=== PATIENT | male | born 1965 | race Caucasian/White ===

== ENCOUNTER → 2016-09-23 | Outpatient (CLI) | payer OTHER ==
[2016-09-23 07:47] LABS: CH 31.4; CHCM 35.5; HCT 46.2 % (39.0-53.0); HDW 2.77; HGB 16.7 gm/dL (13.0-17.5); MCH 32.1 pg (25.0-35.0); MCHC 36.1 g/dL (31.0-37.0); MCV 88.8 fL (80.0-100.0); Mean Platelet Volume 6.6; RDW 12.2 % (11.5-15.5); WBC 4.3 k/uL (3.8-10.6)
[2016-09-23 08:39] LABS: Hemoglobin A1C 5.2 % (4.2-6.1)
[2016-09-23 10:25] LABS: ALT 88 U/L (21-72); AST 34 U/L (17-59); Alkaline Phosphatase 55 U/L (38-126); Anion Gap 12 mmol/L; Blood Urea Nitrogen 16 mg/dL (9-20); Calcium 9.6 mg/dL (8.4-10.2); Carbon Dioxide 26 mmol/L (22-30); Chloride 107 mmol/L (98-107); Cholesterol 188 mg/dL (<200); Glucose 117 mg/dL (74-99); HDL Cholesterol 46 mg/dL (40-60); Non-African American GFR(MDRD) >60 (>60 ml/min/1.73 sqM); Potassium 4.3 mmol/L (3.5-5.1); Sodium 145 mmol/L (137-145); Total Bilirubin 0.8 mg/dL (0.2-1.3); Triglycerides 98 mg/dL (<150)
== END | disposition home or self-care (01) ==
LOC: LABWHC1 06:58
PROVIDERS: ATTEND Internal Medicine
DX: E78.5 Hyperlipidemia, unspecified (principal); R73.9 Hyperglycemia, unspecified; Z12.5 Encounter for screening for malignant neoplasm of prostate
CPT/HCPCS: 80061; 80053; 83036; 84443; 85027; 36415; G0103

== ENCOUNTER → 2016-11-05 | Outpatient (CLI) | payer OTHER ==
[2016-11-05 21:52] LABS: ANA w/Reflex to Titer NEGATIVE (NEGATIVE)
== END | disposition home or self-care (01) ==
LOC: LABWHC1 12:58
PROVIDERS: ATTEND Otolaryngology
DX: M54.2 Cervicalgia (principal); R07.0 Pain in throat; R53.83 Other fatigue; R68.2 Dry mouth, unspecified
CPT/HCPCS: 36415; 86038; 86235; 86376; 86431

== ENCOUNTER → 2016-12-13 | Outpatient (CLI) | payer OTHER ==
--- NOTE | 2016-12-13 09:11 | CT ---
EXAMINATION TYPE: CT soft tissue neck w con DATE OF EXAM: 12/13/2016 HISTORY: lt side of neck lump x 6 months COMPARISON: CT neck September 19, 2014 CT DLP: 330.0 mGycm. Automated Exposure Control for Dose Reduction was Utilized. TECHNIQUE: CT scan of the neck is performed with IV Contrast, patient injected with 100 mL of Omnipa que 300, axial images are obtained, coronal and sagittal reformatted images are reviewed. FINDINGS: A metallic BB is placed at level of palpable abnormality left neck just below level of true vocal cor ds at superior aspect of thyroid gland on axial image 34. At this level strap muscles and SCM are sym metric and felt within normal limits. Vascular structures are unremarkable. Tiny lymph nodes are pres ent bilaterally. There is no suspicious solid or cystic mass or fluid collection identified. Airway remains patent. Thyroid is felt within normal limits. Lung apices are clear. There is no significant plaque or stenosis in carotid bulbs bilaterally. Parotid and submandibular gl ands are symmetric and unremarkable. Visualized paranasal sinuses are clear. Visualized portion of br ain is unremarkable. Visualized osseous structures are intact. No greater than 1 cm suspicious neck a denopathy is seen. Poorly pneumatized mastoid air cells are redemonstrated bilaterally. IMPRESSION: No worrisome mass or adenopathy is seen. No significant change from prior study noted.
== END | disposition home or self-care (01) ==
LOC: RADCTMAIN 07:04
PROVIDERS: ATTEND Otolaryngology
DX: R22.1 Localized swelling, mass and lump, neck (principal)
CPT/HCPCS: 70491; Q9967

== ENCOUNTER → 2017-02-04 | Outpatient (CLI) | payer OTHER ==
[2017-02-04 07:23] LABS: Basophils % (A) 0 %; CH 32.4; CHCM 34.7; Eosinophils # (A) 0.1 k/uL (0-0.7); Eosinophils % (A) 2 %; HCT 47.4 % (39.0-53.0); HDW 2.75; Luc % (Auto) 3; Lymphocytes # (A) 1.4 k/uL (1.0-4.8); Lymphocytes % (A) 34 %; MCH 31.5 pg (25.0-35.0); MCHC 33.7 g/dL (31.0-37.0); MCV 93.7 fL (80.0-100.0); Monocytes # (A) 0.2 k/uL (0-1.0); Monocytes % (A) 6 %; Neutrophils # (A) 2.1 k/uL (1.3-7.7); Neutrophils % (A) 54 %; RBC 5.06 m/uL (4.30-5.90); RDW 12.2 % (11.5-15.5); WBC 3.9 k/uL (3.8-10.6); WBC (Perox) 4.09
[2017-02-04 07:32] LABS: ALT 64 U/L (21-72); AST 22 U/L (17-59); Alkaline Phosphatase 44 U/L (38-126); Anion Gap 6 mmol/L; Blood Urea Nitrogen 15 mg/dL (9-20); Calcium 9.7 mg/dL (8.4-10.2); Carbon Dioxide 29 mmol/L (22-30); Chloride 108 mmol/L (98-107); Cholesterol 195 mg/dL (<200); Glucose 115 mg/dL (74-99); HDL Cholesterol 49 mg/dL (40-60); Non-African American GFR(MDRD) >60 (>60 ml/min/1.73 sqM); Potassium 4.4 mmol/L (3.5-5.1); Sodium 143 mmol/L (137-145); Total Bilirubin 0.7 mg/dL (0.2-1.3)
== END | disposition home or self-care (01) ==
LOC: LABWHC1 06:44
PROVIDERS: ATTEND Internal Medicine
DX: Z13.6 Encounter for screening for cardiovascular disorders (principal); K21.9 Gastro-esophageal reflux disease without esophagitis; R53.83 Other fatigue
CPT/HCPCS: 36415; 80053; 80061; 84443; 85025

== ENCOUNTER → 2017-06-11 | Outpatient (CLI) | payer OTHER ==
[2017-06-11 08:46] LABS: Basophils % (A) 1 %; Eosinophils # (A) 0.1 k/uL (0-0.7); Eosinophils % (A) 1 %; HCT 47.6 % (39.0-53.0); Lymphocytes # (A) 1.8 k/uL (1.0-4.8); Lymphocytes % (A) 37 %; MCH 30.1 pg (25.0-35.0); MCHC 33.7 g/dL (31.0-37.0); MCV 89.1 fL (80.0-100.0); Mean Platelet Volume 7.1; Monocytes # (A) 0.4 k/uL (0-1.0); Monocytes % (A) 7 %; Neutrophils # (A) 2.6 k/uL (1.3-7.7); Neutrophils % (A) 51 %; Platelet Count 203 k/uL (150-450); RBC 5.34 m/uL (4.30-5.90); RDW 12.2 % (11.5-15.5)
[2017-06-11 09:03] LABS: ALT 74 U/L (21-72); AST 27 U/L (17-59); Albumin 4.5 g/dL (3.5-5.0); Alkaline Phosphatase 50 U/L (38-126); Anion Gap 10 mmol/L; Blood Urea Nitrogen 21 mg/dL (9-20); Calcium 9.8 mg/dL (8.4-10.2); Carbon Dioxide 28 mmol/L (22-30); Chloride 106 mmol/L (98-107); Cholesterol 221 mg/dL (<200); Glucose 112 mg/dL (74-99); HDL Cholesterol 48 mg/dL (40-60); LDL Cholesterol,Calculated 154 mg/dL (0-99); Potassium 4.7 mmol/L (3.5-5.1); Sodium 144 mmol/L (137-145); Total Protein 7.1 g/dL (6.3-8.2); Triglycerides 95 mg/dL (<150)
== END | disposition home or self-care (01) ==
LOC: LABWHC1 08:15
PROVIDERS: ATTEND Internal Medicine
DX: K21.9 Gastro-esophageal reflux disease without esophagitis (principal); R53.83 Other fatigue; Z13.6 Encounter for screening for cardiovascular disorders
CPT/HCPCS: 36415; 80053; 80061; 84443; 85025

== ENCOUNTER → 2017-08-23 | Outpatient (CLI) | payer OTHER ==
--- NOTE | 2017-08-24 08:46 | CT ---
EXAMINATION TYPE: CT abdomen pelvis wo con DATE OF EXAM: 08/23/2017 COMPARISON: 07/25/2015 HISTORY: Right side flank pain. CT DLP: 426.9 mGycm Examination of the solid and hollow viscera is limited given the lack of contrast. FINDINGS: LUNG BASES: No evidence for nodule. No evidence for infiltrate. LIVER/GB: The gallbladder is unremarkable. Simple cyst dome of the liver measuring 9 mm. No solid hep atic lesions identified. PANCREAS: No pancreatic mass identified. No inflammatory process seen. SPLEEN: No evidence for splenomegaly. No intrasplenic lesions seen. ADRENALS: No adrenal nodules identified. No evidence for thickening. KIDNEYS: No evidence for renal mass. No nephrolithiasis. No hydronephrosis. BOWEL: Appendix has a normal appearance. No evidence of bowel obstruction. No inflammatory process. Lymph nodes: No evidence for adenopathy greater than 1 cm. Abdominal aorta: Atheromatous changes seen. No evidence for aneurysm. Genital organs: No significant abnormality. Other: No significant abnormality. IMPRESSION: NO DISTINCT ABNORMALITY APPRECIATED.
== END | disposition home or self-care (01) ==
LOC: RADCTMAIN 18:06
PROVIDERS: ATTEND Family Medicine
DX: R10.9 Unspecified abdominal pain (principal); Z91.048 Other nonmedicinal substance allergy status
CPT/HCPCS: 74176

== ENCOUNTER 2017-09-01 12:33 | Day surgery (SDC) | payer OTHER ==
[2017-08-30 10:45] VITALS: BMI 25.0
[~2017-09-01 12:33] MED LIST: LACTATED RINGERS 1,000 ML IV SCH; LIDOCAINE 1% 20 ML VIAL (10MG/ML) FOR IV START INTRADERMA PRN; MIDAZOLAM 2 MG/2 ML VIAL IV PRN
[2017-09-01 13:00] VITALS: TEMP 97
[2017-09-01] MEDS ORDERED: PROPOFOL 10 MG/ML 20 ML VIAL IV ONE (14:14)
[2017-09-01] MEDS ORDERED: LIDOCAINE 1% INJ 10MG/ML (20 ML MDV) ONE (14:14)
--- NOTE | 2017-09-01 14:39 | P.PCN ---
Date of Procedure: 09/01/17 Procedure(s) Performed: Procedure: Total colonoscopy. Preoperative diagnosis: Screening for history of polyps. Postoperative diagnosis: Sigmoid diverticulosis with no evidence of acute diverticulitis, strictures, polyps or cancer. Preparation: HalfLytely prep. Sedation: Was provided by anesthesia. Brief clinical history: The patient is 52-year-old male who is scheduled for this evaluation for screening for neoplasia because of history of polyps. His last exam was 5 or 6 years ago. At this time, he has no abdominal complaints, bleeding or anemia. Procedure: With the patient on his left lateral decubitus position and after informed consent and adequate sedation, the perianal area was inspected and it did not show any fissures or fistulas. There were no masses felt on digital rectal examination. The Olympus CFQ 160L video colonoscope was then inserted in the rectum in the usual fashion and advanced to the cecum. There were several diverticular orifices seen scattered in the distal sigmoid with no evidence of acute diverticulitis or strictures. The mucosa appeared healthy. No polyps or tumors were seen. I retroflexed the endoscope in the rectum before the endoscope was withdrawn. The patient tolerated the procedure well. Plan: The patient was reassured. Discussed dietary measures. With his history , I recommended repeat exam in 5 years. He will follow up with you as planned.
[2017-09-01 15:01] VITALS: BP 109/72; PULSE 68; RESP 16
== END 2017-09-01 15:09 | disposition home or self-care (01) ==
LOC: ORWHC2ENDO 12:33
DX: Z12.11 Encounter for screening for malignant neoplasm of colon (principal); K57.30 Diverticulosis of large intestine without perforation or abscess without bleeding; Z86.010 Personal history of colon polyps; K21.9 Gastro-esophageal reflux disease without esophagitis; Z85.828 Personal history of other malignant neoplasm of skin; Z87.891 Personal history of nicotine dependence; Z91.041 Radiographic dye allergy status; Z91.048 Other nonmedicinal substance allergy status
CPT/HCPCS: J2001; J2704; G0105

== ENCOUNTER → 2017-09-03 | Outpatient (CLI) | payer OTHER ==
[2017-09-03 08:56] LABS: Basophils % (A) 1 %; Eosinophils # (A) 0.1 k/uL (0-0.7); Eosinophils % (A) 2 %; HCT 45.1 % (39.0-53.0); HGB 15.9 gm/dL (13.0-17.5); Lymphocytes # (A) 1.6 k/uL (1.0-4.8); Lymphocytes % (A) 42 %; MCH 31.7 pg (25.0-35.0); MCHC 35.3 g/dL (31.0-37.0); MCV 89.8 fL (80.0-100.0); Mean Platelet Volume 6.8; Monocytes # (A) 0.3 k/uL (0-1.0); Monocytes % (A) 7 %; Neutrophils # (A) 1.7 k/uL (1.3-7.7); Neutrophils % (A) 45 %; Platelet Count 168 k/uL (150-450); RBC 5.02 m/uL (4.30-5.90); RDW 12.6 % (11.5-15.5); WBC 3.8 k/uL (3.8-10.6)
[2017-09-03 11:21] LABS: ALT 55 U/L (21-72); AST 26 U/L (17-59); Albumin 4.4 g/dL (3.5-5.0); Alkaline Phosphatase 44 U/L (38-126); Anion Gap 13 mmol/L; Blood Urea Nitrogen 18 mg/dL (9-20); Calcium 9.7 mg/dL (8.4-10.2); Carbon Dioxide 24 mmol/L (22-30); Chloride 110 mmol/L (98-107); Glucose 115 mg/dL (74-99); Potassium 4.2 mmol/L (3.5-5.1); Sodium 147 mmol/L (137-145); Total Bilirubin 0.4 mg/dL (0.2-1.3); Total Protein 6.7 g/dL (6.3-8.2)
[2017-09-03 11:54] LABS: Prostate Specific Antigen 0.39 ng/mL (0.00-4.00)
== END | disposition home or self-care (01) ==
LOC: LABWHC1 08:14
PROVIDERS: ATTEND Family Medicine
DX: Z00.00 Encounter for general adult medical examination without abnormal findings (principal); M54.5 Low back pain
CPT/HCPCS: 36415; 80053; 84153; 84443; 85025

== ENCOUNTER → 2020-01-28 | Outpatient (CLI) | payer OTHER ==
--- NOTE | 2020-01-28 20:43 | US ---
EXAMINATION TYPE: US axilla LT DATE OF EXAM: 01/28/2020 COMPARISON: NONE CLINICAL HISTORY: 55-year-old male R59.0 Localized enlarged lymph nodes. Lump within the left axilla that changes in size. TECHNIQUE: Targeted ultrasound examination at the palpable site within the left axilla. Images of the contralateral side were taken for comparison purposes. FINDINGS: Rotary Kiln Operator notes: Normal appearing lymph nodes noted bilateral axilla = 1.8 x 1.6 x 0.8 cm on the le ft and 1.4 x 1.2 x 1.0 cm on the right IMPRESSION: Prominent lymph nodes are noted in the bilateral axilla, mildly enlarged on the left measuring up to 1.6 cm short axis and upper limits of normal in size measuring up to 1.2 cm short axis on the right.
== END | disposition home or self-care (01) ==
LOC: RADUSWWP 16:12
PROVIDERS: ATTEND Family Medicine
DX: R59.0 Localized enlarged lymph nodes (principal); Z91.048 Other nonmedicinal substance allergy status

== ENCOUNTER → 2020-07-04 | Outpatient (CLI) | payer OTHER ==
[2020-07-04 08:20] LABS: Basophils % (A) 1 %; Eosinophils % (A) 1 %; HCT 40.1 % (39.0-53.0); HGB 14.6 gm/dL (13.0-17.5); Lymphocytes # (A) 1.1 k/uL (1.0-4.8); Lymphocytes % (A) 26 %; MCHC 36.3 g/dL (31.0-37.0); MCV 88.1 fL (80.0-100.0); Monocytes # (A) 0.3 k/uL (0-1.0); Monocytes % (A) 7 %; Neutrophils # (A) 2.5 k/uL (1.3-7.7); Neutrophils % (A) 63 %; Platelet Count 211 k/uL (150-450); RBC 4.55 m/uL (4.30-5.90); RDW 11.7 % (11.5-15.5)
[2020-07-04 08:37] LABS: ALT 54 U/L (4-49); AST 30 U/L (17-59); African American GFR (CKD) >90 (>60 ml/min/1.73 sqM); Alkaline Phosphatase 64 U/L (38-126); Anion Gap 9 mmol/L; Blood Urea Nitrogen 17 mg/dL (9-20); Calcium 9.4 mg/dL (8.4-10.2); Carbon Dioxide 25 mmol/L (22-30); Chloride 108 mmol/L (98-107); Glucose 123 mg/dL (74-99); Non-African American GFR(CKD) >90 (>60 ml/min/1.73 sqM); Potassium 4.1 mmol/L (3.5-5.1); Sodium 142 mmol/L (137-145); Total Bilirubin 0.7 mg/dL (0.2-1.3); Total Protein 6.6 g/dL (6.3-8.2)
[2020-07-04 09:08] LABS: Cholesterol 185 mg/dL (<200); HDL Cholesterol 36 mg/dL (40-60); LDL Cholesterol,Calculated 131 mg/dL (0-99); Triglycerides 91 mg/dL (<150)
[2020-07-04 10:07] LABS: Erythrocyte Sedimentation Rate 20 mm/hr (0-15)
[2020-07-04 14:38] LABS: HIV 2 AB Non-Reactive (Non-Reactive); HIV AB P24 Non-Reactive (Non-Reactive); HIV P24 AG Non-Reactive (Non-Reactive)
[2020-07-04 16:52] LABS: Protein, Total 6.2 g/dL (6.2-8.2)
[2020-07-04 17:37] LABS: Hepatitis A Antibody IgM Non-Reactive (Non-Reactive); Hepatitis B Core IgM Non-Reactive (Non-Reactive); Hepatitis B Surface Antigen Non-Reactive (Non-Reactive); Hepatitis C IgG Antibody Non-Reactive (Non-Reactive)
[2020-07-04 19:24] LABS: Hemoglobin A1C 5.6 % (4.0-6.0)
[2020-07-05 01:30] LABS: PSA Annual Screen 0.4 ng/mL (0.0-4.0)
[2020-07-09 11:27] LABS: Albumin 3.66 g/dL (3.80-4.90); Gamma Globulin 0.78 g/dL (0.70-1.50)
== END | disposition home or self-care (01) ==
LOC: LABWHC1 07:20
PROVIDERS: ATTEND Internal Medicine
DX: Z00.00 Encounter for general adult medical examination without abnormal findings (principal); K21.9 Gastro-esophageal reflux disease without esophagitis; R73.9 Hyperglycemia, unspecified; R59.0 Localized enlarged lymph nodes
CPT/HCPCS: 86665; 80061; 80053; 80074; 85652; 84443; 85025; 84165; 86645; 87390; 83036; 36415; G0103

== ENCOUNTER → 2021-03-12 | Outpatient (CLI) | payer OTHER ==
--- NOTE | 2021-03-13 07:34 | CTL ---
EXAMINATION TYPE: CT Low Dose Lung DATE OF EXAM ORDERED: 03/12/2021 HISTORY: Long-term tobacco use. Lung cancer screening CT DLP: 95.[address] CTDI: 2.5 mGy Automated exposure control for dose reduction was used. SCREENING VISIT: Baseline COMPARISON: None TECHNIQUE: Low dose computed tomography scan was performed through the chest at 1 mm thick sections a nd reconstructed images in multiple planes at 1 mm and [address] DIAGNOSTIC QUALITY: Satisfactory FINDINGS: LUNG NODULES: None. LUNGS: COPD: Severity: Mild Fibrosis: Severity: None Lymph nodes: No greater than 1 cm Other findings: None RIGHT PLEURAL SPACE: Effusion: None Calcification: None Thickening: None Pneumothorax: None LEFT PLEURAL SPACE: Effusion: None Calcification: None Thickening: None Pneumothorax: None HEART: Heart Size: Normal Coronary Calcification: None Pericardial Effusion: Normal OTHER FINDINGS: Upper abdomen: None Bony thorax: None Supraclavicular region: None Other: None IMPRESSION: No suspicious nodules. CT LUNG RAD AND CT CHEST RECOMMENDATION: Lung-Rad 1 Negative: Continue annual screening with LDCT in 12 months. S Modifier (other clinically significant findings): None
== END | disposition home or self-care (01) ==
LOC: RADCTMAIN 17:26
PROVIDERS: ATTEND Internal Medicine
DX: Z12.2 Encounter for screening for malignant neoplasm of respiratory organs (principal); Z72.0 Tobacco use
CPT/HCPCS: 71271

== ENCOUNTER → 2022-02-23 | Outpatient (CLI) | payer OTHER ==
--- NOTE | 2022-02-23 15:30 | CT ---
EXAMINATION TYPE: CT abdomen pelvis w con DATE OF EXAM: 02/23/2022 COMPARISON: CT abdomen and pelvis 2018 HISTORY: Lower abdominal pain CT DLP: 1229 mGycm, Automated Exposure Control for Dose Reduction was Utilized. CONTRAST: CT scan of the abdomen and pelvis is performed with oral and with IV Contrast, patient injected with 100cc mL of Isovue 300. FINDINGS: LUNG BASES: No significant abnormality is appreciated. LIVER/GB: No significant abnormality is appreciated. PANCREAS: No significant abnormality is seen. SPLEEN: No significant abnormality is seen. ADRENALS: No significant abnormality is seen. KIDNEYS: Symmetric corticomedullary injury uptake and excretion without hydronephrosis seen bilateral ly. Simple appearing central parapelvic cysts in both kidneys. BOWEL: Oral contrast reaches the splenic flexure. No suspicious small or large bowel dilatation. Sigm oid colonic diverticula are present. No CT evidence for acute diverticulitis. PROSTATE/SEMINAL VESICLES: No gross abnormality seen. LYMPH NODES: No greater than 1cm abdominal or pelvic lymph nodes are appreciated. OSSEOUS STRUCTURES: No significant abnormality is seen. OTHER: Small fat-containing left inguinal hernia. IMPRESSION: No bowel obstruction. No significant acute finding is seen to account for patient's clin ical symptoms of lower abdominal pain not further specified. No significant change from prior CT.
== END | disposition home or self-care (01) ==
LOC: RADCTMAIN 14:19
PROVIDERS: ATTEND Internal Medicine
DX: R10.32 Left lower quadrant pain (principal)
CPT/HCPCS: 74177; 36415; Q9967

== ENCOUNTER → 2022-04-15 | Outpatient (CLI) | payer BC ==
--- NOTE | 2022-04-16 07:30 | CTL ---
EXAMINATION TYPE: CT Low Dose Lung DATE OF EXAM: 04/15/2022 5:16 PM CLINICAL INDICATION:Male, 57 years old with history of Z87.891; personal hx tobacco use , history of tobacco use. COMPARISON: None. TECHNIQUE: Multiple axial non-contrast scans were obtained from approximately the lung apices through the upper abdomen. Coronal and sagittal reformatted images were obtained. Low dose technique was uti lized. CT DLP: 84.2 mGycm, Automated exposure control for dose reduction was used. CT Contrast: Contrast used: None Oral contrast used: None FINDINGS: ======== Lack of intravenous contrast and low dose technique limits the evaluation of the vascular and soft ti ssue structures. LUNGS: Mild centrilobular emphysema changes are seen throughout the lungs. No evidence of focal conso lidation, pneumothorax or pleural effusion. Nodules: RUL: None. RML: None. RLL: None. [place]: None. LLL: None. AIRWAY: Patent and unremarkable. HEART: Size within normal limits. MEDIASTINUM: No gross evidence of adenopathy. VASCULATURE: No aortic aneurysm. MUSCULOSKELETAL: No acute osseous abnormalities, mild multilevel disc degeneration changes throughout the spine. SOFT TISSUES/LYMPH NODES: Unremarkable. LOWER NECK: No significant findings. UPPER ABDOMEN: No significant findings. IMPRESSION: 1. No clinically significant pulmonary nodules. 2. Mild emphysema. CT LUNG RAD AND CT CHEST RECOMMENDATION: Lung-Rad 1 Negative: Continue annual screening with LDCT in 12 months. S Modifier (other clinically significant findings): None Recommend smoking cessation (if current smoker), or continuation of smoking cessation (if prior smoke r). Annual screening for lung cancer with low-dose computed tomography is recommended in adults ages 55 to 77 years who have a 30 pack-year smoking history and currently smoke or have quit within the pa st 15 years. Screening should be discontinued once a person has not smoked for 15 years or develops a health problem that substantially limits life expectancy or the ability or willingness to have curat josh lung surgery. Lung rads 2021 [email or web address]
== END | disposition home or self-care (01) ==
LOC: RADCTMAIN 16:47
PROVIDERS: ATTEND Internal Medicine
DX: Z12.2 Encounter for screening for malignant neoplasm of respiratory organs (principal); J43.9 Emphysema, unspecified; Z87.891 Personal history of nicotine dependence
CPT/HCPCS: 71271

== ENCOUNTER 2022-10-19 08:34 | Day surgery (SDC) | payer BC, OTHER ==
[~2022-10-19 08:34] MED LIST changes: +LIDOCAINE 1% (10MG/ML) FOR IV START INTRADERMA PRN; -LIDOCAINE 1% 20 ML VIAL (10MG/ML) FOR IV START INTRADERMA PRN; -MIDAZOLAM 2 MG/2 ML VIAL IV PRN; +ONDANSETRON 4 MG/2 ML VIAL IVP PRN
[2022-10-19 08:58] VITALS: TEMP 97.7
[2022-10-19] MEDS ORDERED: PROPOFOL 10 MG/ML 20 ML VIAL IV ONE (09:02)
--- NOTE | 2022-10-19 09:05 | P.GSHP ---
History of Present Illness H&P Date: 10/19/22 Chief Complaint: Screening, history of polyps 57-year-old male here for colonoscopy. Last colonoscopy 5 years ago. Patient has personal history of colon polyps. No bowel complaints. No family history of colon cancer. Past Medical History Past Medical History: Cancer, COPD, GERD/Reflux, Osteoarthritis (OA) Additional Past Medical History / Comment(s): Routine colonoscopy. Past benign colon polyps, face skin cancer with removals History of Any Multi-Drug Resistant Organisms: None Reported Past Surgical History: Adenoidectomy, Ear Surgery, Tonsillectomy Additional Past Surgical History / Comment(s): PREVIOUS EGD, colonoscopies, TUBES IN EARS Past Anesthesia/Blood Transfusion Reactions: Postoperative Nausea & Vomiting (PONV) Additional Past Anesthesia/Blood Transfusion Reaction / Comment(s): Pt has never received blood. Smoking Status: Former smoker - Past Family History Father Family Medical History: No Reported History Mother Family Medical History: No Reported History Medications and Allergies Home Medications Medication Instructions Recorded Confirmed Type Dexlansoprazole [Dexilant] 60 mg PO WEEKLY PRN 10/14/22 10/19/22 History Garlic 500 mg PO QAM 10/14/22 10/19/22 History Phenyleph/Mineral Oil/Petrolat 1 applic RECTAL BID 10/14/22 10/19/22 History [Preparation H Ointment] Allergies Allergy/AdvReac Type Severity Reaction Status Date / Time Iodine and Iodide Containing Allergy Anaphylaxis Verified 10/19/22 08:55 Produc Surgical - Exam Vital Signs Temp Pulse Resp BP Pulse Ox 97.7 F 69 16 137/81 95 10/19/22 08:57 10/19/22 08:57 10/19/22 08:57 10/19/22 08:57 10/19/22 08:57 Physical exam: General: Well-developed, well-nourished HEENT: Normocephalic, sclerae nonicteric Abdomen: Nontender, nondistended Extremities: No edema Neuro: Alert and oriented Assessment and Plan (1) Colon cancer screening Narrative/Plan: Will proceed with colonoscopy at this time. Current Visit: Yes Status: Acute Code(s): Z12.11 - ENCOUNTER FOR SCREENING FOR MALIGNANT NEOPLASM OF COLON SNOMED Code(s): 636106028
--- NOTE | 2022-10-19 09:16 | P.PCN ---
Date of Procedure: 10/19/22 Procedure(s) Performed: PREOPERATIVE DIAGNOSIS: Colon cancer screening with history of polyps POSTOPERATIVE DIAGNOSIS: Diverticulosis PROCEDURE: Colonoscopy ANESTHESIA: MAC SURGEON: Willian Soto M.D. SPECIMENS: None ENDOSCOPIC PROCEDURE: The patient was placed on the endoscopy table in the left decubitus position. The Olympus colonoscope was inserted into the anus and passed under direct visualization to the base of the cecum. The appendiceal orifice was visualized. From that point the scope was slowly withdrawn inspecting all surfaces carefully. There were no neoplastic inflammatory or polypoid lesions throughout the cecum, ascending, transverse, descending, sigmoid and rectum. There was mild scattered left sided diverticulosis noted. Digital rectal examination was normal. The patient was taken to the recovery room in stable condition per anesthesia guidelines. RECOMMENDATIONS: Resume diet. Repeat colonoscopy 5-7 years.
[2022-10-19 09:42] VITALS: BP 133/88; PULSE 58; RESP 14
== END 2022-10-19 09:47 | disposition home or self-care (01) ==
LOC: ORWHC2ENDO 08:34
PROVIDERS: ATTEND Surgery
DX: Z12.11 Encounter for screening for malignant neoplasm of colon (principal); K57.30 Diverticulosis of large intestine without perforation or abscess without bleeding; J44.9 Chronic obstructive pulmonary disease, unspecified; K21.9 Gastro-esophageal reflux disease without esophagitis; M19.90 Unspecified osteoarthritis, unspecified site; Z85.828 Personal history of other malignant neoplasm of skin; Z90.89 Acquired absence of other organs; Z87.891 Personal history of nicotine dependence; Z88.8 Allergy status to other drugs, medicaments and biological substances; Z86.010 Personal history of colon polyps; Z91.041 Radiographic dye allergy status; Z79.899 Other long term (current) drug therapy
CPT/HCPCS: 45378; J2704

== ENCOUNTER → 2023-04-18 | Outpatient (CLI) | payer BC ==
--- NOTE | 2023-04-18 17:06 | CTL ---
EXAMINATION TYPE: CT Low Dose Lung DATE OF EXAM ORDERED: 04/18/2023 HISTORY: . Lung cancer screening CT DLP: 82.[address] CTDI: 2.3 mGy Automated exposure control for dose reduction was used. COMPARISON: 04/15/2022 TECHNIQUE: Low dose computed tomography scan was performed through the chest at 1 mm thick sections a nd reconstructed images in multiple planes at 1 mm and [address] DIAGNOSTIC QUALITY: Satisfactory FINDINGS: There is no suspicious lung mass or nodule. There is no abnormal airspace/consolidative density or abnormal interstitial density. There is no pleural effusion, pleural thickening or pneumothorax. The great vessels chest are normal there's no mediastinal, hilar or axillary adenopathy. Limited scanning through the upper abdomen reveals no gross abnormality. No focal osseous lesions are seen. IMPRESSION: 1. Lung metastases category 1 negative. Continue routine screening yearly intervals. 2. No acute cardiopulmonary disease.
== END | disposition home or self-care (01) ==
LOC: RADCTMAIN 16:27
PROVIDERS: ATTEND Internal Medicine
DX: Z12.2 Encounter for screening for malignant neoplasm of respiratory organs (principal); Z87.891 Personal history of nicotine dependence
CPT/HCPCS: 71271

== ENCOUNTER → 2023-07-01 | Day surgery (SDC) | payer BC ==
[2023-06-28 14:22] VITALS: BMI 25.0
[~2023-07-01] MED LIST changes: +ACETAMINOPHEN TAB 325 MG TAB PO SCH; +GLYCOPYRROLATE 0.2 MG/ML 2 ML VIAL ONE; +HYDROmorphone (PF) 1 MG/ML ONE; +IBUPROFEN 600 MG TAB PO SCH; -LACTATED RINGERS 1,000 ML IV SCH; +LIDOCAINE 1% INJ 10MG/ML (20 ML MDV) ONE; +MIDAZOLAM 2 MG/2 ML VIAL ONE; +NEOSTIGMINE 1 MG/ML 10 ML VIAL ONE; -ONDANSETRON 4 MG/2 ML VIAL IVP PRN; +PROPOFOL 10 MG/ML 20 ML VIAL IV ONE; +ROCURONIUM 10 MG/ML (5 ML VIAL) IV ONE; +SUCCINYLCHOLINE CHLORIDE 200 MG/10 ML VIAL IV ONE; +droPERidol 5 MG/2 ML VIAL IVP ONE; +ePHEDrine 50 MG/ML 1 ML VIAL ONE; +fentaNYL (PF) 50 MCG/ML 2 ML AMP ONE
[2023-07-01] MEDS: DEXAMETHASONE SOD PHOSPHATE 4 MG/ML 1 ML VIAL IV ONE (07:09)
[2023-07-01] MEDS: LACTATED RINGERS 1,000 ML IV SCH (07:09)
[2023-07-01] MEDS: HEPARIN SODIUM,PORCINE 5,000 UNIT/ML 1 ML VIAL SQ PRN (07:09)
[2023-07-01] MEDS: ACETAMINOPHEN TAB 500 MG TAB PO PRN (07:09)
[2023-07-01] MEDS: ONDANSETRON 4 MG/2 ML VIAL IVP ONE (07:09)
[2023-07-01] MEDS: BUPIVACAINE (PF) 0.25% 30 ML VIAL SQ ONE ×3 (07:22→08:17)
--- NOTE | 2023-07-01 07:24 | P.GSHP ---
History of Present Illness H&P Date: 07/01/23 Chief Complaint: Left inguinal hernia 58-year-old male here today for elective repair left inguinal hernia. Patient seen in the office last in November. Complains of a bulge left groin. Frequency of symptoms increasing. Also has a umbilical hernia. No symptoms on the right groin. No prior hernias. Past Medical History Past Medical History: GERD/Reflux Additional Past Medical History / Comment(s): "FEELS LIKE SOMETHING IS IN MY THROAT" History of Any Multi-Drug Resistant Organisms: None Reported Additional Past Surgical History / Comment(s): PREVIOUS EGD, TUBES IN EARS, COLONOSCOPY Past Anesthesia/Blood Transfusion Reactions: Postoperative Nausea & Vomiting (PONV) Smoking Status: Former smoker - Past Family History Mother Family Medical History: No Reported History Medications and Allergies Home Medications Medication Instructions Recorded Confirmed Type Dexlansoprazole [Dexilant] 60 mg PO DAILY PRN 10/14/22 07/01/23 History Allergies Allergy/AdvReac Type Severity Reaction Status Date / Time Iodine and Iodide Containing Allergy Anaphylaxis Verified 07/01/23 06:47 Produc Surgical - Exam Vital Signs Temp Pulse Resp BP Pulse Ox 97.6 F 65 18 145/78 98 07/01/23 06:44 07/01/23 06:44 07/01/23 06:44 07/01/23 06:44 07/01/23 06:44 Physical exam: General: Well-developed, well-nourished HEENT: Normocephalic, sclerae nonicteric Abdomen: Nontender, nondistended, reducible umbilical hernia, reducible left inguinal hernia Extremities: No edema Neuro: Alert and oriented Assessment and Plan (1) Left inguinal hernia Narrative/Plan: 58-year-old male with left inguinal hernia and umbilical hernia. Will proceed with da Clarissa robotic laparoscopic assisted left inguinal hernia with mesh, possible open, possible bilateral, with open repair umbilical hernia with possible mesh. Risks of bleeding, infection, recurrence, bladder and bowel injury, numbness, nerve injury, conversion to an open procedure were discussed with the patient. The patient understands and wishes to proceed. Current Visit: Yes Status: Acute Code(s): K40.90 - UNIL INGUINAL HERNIA, W/O OBST OR GANGR, NOT SPCF RECUR SNOMED Code(s): 381547018
[2023-07-01] MEDS: TAMSULOSIN 0.4 MG CAP.ER.24H PO ONE (07:27)
[2023-07-01] MEDS: LACTATED RINGERS 1,000 ML IV ONE (08:54)
--- NOTE | 2023-07-01 10:28 | P.OP ---
Date of Procedure: 07/01/23 Procedure(s) Performed: PREOPERATIVE DIAGNOSIS: Left inguinal hernia, umbilical hernia reducible POSTOPERATIVE DIAGNOSIS: Same, cord lipoma PROCEDURE: Laparoscopic da Clarissa assisted repair left inguinal hernia with mesh, umbilical hernia with mesh open SURGEON: Dr. Soto ANESTHESIA: General OPERATIVE PROCEDURE DETAILS: Patient was placed in the operating table in the supine position. The patient was placed under general anesthesia. The abdomen was prepped and draped in usual sterile fashion. A curvilinear supraumbilical incision was made. The fascial defect was identified. This was superficially cleared. The peritoneum was opened by incising the hernia sac. The 8 mm trocar was placed within the abdominal cavity under direct visualization. The fascia was closed using 3 separate [id number] 0 Ethibond sutures around the trocar site. Full insufflation took place. 2 additional 8 mm trochars were placed in the right upper quadrant and left upper quadrant under visualization. The robotic arms were then brought in and docked into place. The fenestrated bipolar was used in the left arm and the laparoscopic baljit was utilized in the right arm. A 30 8 mm scope was used in the up position. The peritoneal cavity was inspected. The patient had no visible peritoneal defect bilaterally. On the left-hand side the peritoneum was incised in a horizontal fashion cephalad to the internal inguinal ring. Following that careful dissection of the preperitoneal space took place. This took place using both electrocautery, sharp dissection but primarily blunt dissection. Visualization of the pubic tubercle and Marcel's ligament took place medially. Full dissection took place laterally as well. There was no visible indirect or direct hernia. The patient did have a large lipoma of the cord however that was fully dissected. This was partially identified after pressing on the left lower quadrant at the hernia site. No other hernias were noted. Once we had adequate space the [id number] Progrip mesh was advanced into the preperitoneal space and flattened out appropriately to cover all potential hernia sites. No sutures were used. The peritoneal defect was then closed using a absorbable 2-0 VLok suture. The cord lipoma was removed from the peritoneal cavity using an Endo Catch bag. This was sent to pathology. The pneumoperitoneum was then evacuated. The fascial defect at the umbilicus was then addressed again. The previously placed 0 Ethibond sutures were removed. The fat overlying the fascia was circumferentially dissected. The fascial defect was larger than we had anticipated. This measured about 2 cm x 1 cm. The preperitoneal space was dissected using electrocautery. The 4.3 cm ventral ex mesh was placed beneath the fascia and sutured in place using trans-fascial 0 Ethibond sutures. The defect was closed using interrupted vest over pants 0 Ethibond mattress sutures. The subcutaneous tissues were reapproximated using inverted 2-0 & 3-0 Vicryl sutures. The umbilicus was tacked back down to the fascia using a 2-0 Vicryl suture. The skin was closed using 4-0 Monocryl sutures. Skin glue and sterile dressings were then applied. HERNIA CHARACTERISTICS: Length: 1 cm Width: 2 cm Type: Reducible umbilical TYPE OF MESH USED: 4.3 cm ventral X, 15 cm ProGrip LOCATION OF MESH: [place]ubl[place] FIXATION: 0 Ethibond at the umbilical hernia site PREOPERATIVE DISCUSSION ON SMOKING CESSASTION: Yes PREOPERATIVE DISCUSSION ON MORBID OBESITY: Yes PREOPERATIVE DISCUSSION ON APPROPRIATE USE OF NARCOTIC USE: Yes PREOPERATIVE EDUCATION: Multi Modal, Smoking Cessation and Weight Loss with BMI over 35. DISPOSITION: Stable to recovery room
[2023-07-01] MEDS: HYDROmorphone 0.5 MG/0.5 ML SYRINGE IVP PRN (10:34)
[2023-07-01 10:47] VITALS: TEMP 97.3
[2023-07-01 12:12] VITALS: BP 127/75; PULSE 85; RESP 16
== END ==
LOC: OR 06:04
PROVIDERS: ATTEND Surgery
DX: K40.90 Unilateral inguinal hernia, without obstruction or gangrene, not specified as recurrent (principal); K42.9 Umbilical hernia without obstruction or gangrene; K21.9 Gastro-esophageal reflux disease without esophagitis; Z87.891 Personal history of nicotine dependence; Z91.041 Radiographic dye allergy status; Z88.8 Allergy status to other drugs, medicaments and biological substances; Z79.899 Other long term (current) drug therapy
CPT/HCPCS: 88304; 49650; 49591; C1781 ×2; J2250; J0330; J1644; J1100; J2710; J0690; J2405; J2001; J3010; J1170 ×2; J2704; J0665

== ENCOUNTER → 2024-04-14 | Outpatient (CLI) | payer BC ==
[2024-04-14 09:38] LABS: Appearance,Urine Clear (Clear); Bilirubin,Urine Negative (Negative); Blood,Urine Negative (Negative); Color,Urine Yellow; Glucose,Urine (UA) Negative (Negative); Ketones,Urine Trace (Negative); Leukocyte Esterase,Urine Negative (Negative); Nitrite,Urine Negative (Negative); Protein,Urine Negative (Negative); Specific Gravity,Urine 1.022 (1.001-1.035); Urobilinogen,Urine <2.0 mg/dL (<2.0)
[2024-04-14 13:06] LABS: Basophils # (A) 0.05 X 10*3/uL (0.00-0.10); Basophils % (A) 1.2 %; Eosinophils # (A) 0.06 X 10*3/uL (0.04-0.35); Eosinophils % (A) 1.5 %; HCT 45.3 % (39.6-50.0); HGB 14.9 g/dL (13.0-17.0); Lymphocytes % (A) 34.6 %; MCH 29.7 pg (27.0-32.0); MCHC 32.9 g/dL (32.0-37.0); MCV 90.4 FL (80.0-97.0); Mean Platelet Volume 9.7 FL (9.5-12.2); Monocytes # (A) 0.44 X 10*3/uL (0.20-1.00); Monocytes % (A) 10.9 %; NRBC Per 100 WBC 0 X 10*3/uL (0.00-0.01); Neutrophils # (A) 2.07 X 10*3/uL (1.80-7.70); Neutrophils % (A) 51.1 %; Platelet Count 253 X 10*3/uL (140-440); RBC 5.01 X 10*6/uL (4.40-5.60); RDW 11.6 % (11.5-14.5); WBC 4.05 X 10*3/uL (4.50-10.00)
[2024-04-14 13:20] LABS: ALT 47 U/L (10-49); AST 22 U/L (14-35); Albumin 4.5 g/dL (3.8-4.9); Albumin/Globulin Ratio 2.05 Ratio (1.60-3.17); Amylase 27 U/L (23-121); BUN/Creat Ratio 17.33 Ratio (12.00-20.00); Blood Urea Nitrogen 15.6 mg/dL (9.0-27.0); Calcium 9.7 mg/dL (8.7-10.3); Carbon Dioxide 24.1 mmol/L (21.6-31.8); Chloride 104 mmol/L (96-109); Chol/HDL Ratio 4.89 Ratio; Globulin 2.2 g/dL (1.6-3.3); Glucose 112 mg/dL (70-110); Lipase 25 U/L (14-60); Potassium 4.2 mmol/L (3.5-5.5); Sodium 138 mmol/L (135-145); Total Bilirubin 0.9 mg/dL (0.3-1.2); Total Protein 6.7 g/dL (6.2-8.2)
[2024-04-14 13:21] LABS: Alkaline Phosphatase 62 U/L (41-126)
== END | disposition home or self-care (01) ==
LOC: LABWHC1 08:04
PROVIDERS: ATTEND Internal Medicine
DX: Z00.00 Encounter for general adult medical examination without abnormal findings (principal); Z12.5 Encounter for screening for malignant neoplasm of prostate; R10.32 Left lower quadrant pain
CPT/HCPCS: 80061; 80053; 84443; 82150; 83690; 85025; 81003; 83036; 36415; G0103

== ENCOUNTER → 2024-04-23 | Outpatient (CLI) | payer BC ==
--- NOTE | 2024-04-23 08:27 | CT ---
EXAMINATION TYPE: CT abdomen pelvis wo con CT DLP: 448 mGycm, Automated exposure control for dose reduction was used. DATE OF EXAM: 04/23/2024 8:18 AM COMPARISON: CT abdomen pelvis 02/23/2022, 08/23/2017, 429.16 CLINICAL INDICATION:Male, 59 years old with history of R10.32 ABDOMINAL PAIN LLQ; LLQ pain TECHNIQUE: Standard CT of the abdomen and pelvis following the administration of oral contrast. Cor onal and sagittal reformats were performed. Limited examination due to lack of intravenous contrast. Reported iodine allergy. FINDINGS: LOWER CHEST: Unremarkable ABDOMEN LIVER: Stable right hepatic dome 9 mm cyst. GALLBLADDER AND BILE DUCTS: Unremarkable noncontrast appearance. PANCREAS: Unremarkable noncontrast appearance. SPLEEN: Unremarkable noncontrast appearance. ADRENAL GLANDS: Unremarkable noncontrast appearance. KIDNEYS AND URETERS: No evidence of hydronephrosis or renal calculus. PELVIS BLADDER: Incompletely distended but grossly unremarkable. REPRODUCTIVE: Coarse calcifications of the prostate gland are identified. ABDOMEN & PELVIS STOMACH AND BOWEL: Stomach and duodenum are unremarkable. Enteric contrast reaches the transverse col on. Mild colonic stool rim. The appendix is within normal limits. Few distal scattered colonic divert icula. No focal bowel wall thickening identified. No evidence of bowel obstruction. PERITONEUM: No evidence of pneumoperitoneum or free fluid. VASCULATURE: No evidence of aortic aneurysm. Left-sided pelvic phlebolith is stable. MUSCULOSKELETAL: No acute osseous abnormalities LYMPH NODES: No gross evidence for lymphadenopathy. SOFT TISSUE/ABDOMINAL WALL: Postsurgical changes from left inguinal hernia repair with mesh. IMPRESSION: 1. No acute abdominal subsegmental process within the limitations of a nonintravenous contrast exam. 2. Scattered distal colonic diverticulosis without definite evidence for acute diverticulitis. [facility], , 04/23/2024 8:25 AM
== END | disposition home or self-care (01) ==
LOC: RADCTMAIN 07:59
PROVIDERS: ATTEND Internal Medicine
DX: K57.30 Diverticulosis of large intestine without perforation or abscess without bleeding (principal); R10.32 Left lower quadrant pain
CPT/HCPCS: 74176

== ENCOUNTER → 2024-06-22 | Outpatient (CLI) | payer BC ==
--- NOTE | 2024-06-22 08:17 | US ---
EXAMINATION TYPE: US abdomen complete DATE OF EXAM: 06/22/2024 COMPARISON: CT(04/23/2024) / CLINICAL INDICATION: Male, 59 years old with history of D72.819 DECREASED WHITE BLOOD CELL COUNT, UNS PECIF; DR was specified on splenomegaly TECHNIQUE: Grayscale and color Doppler imaging of the abdomen was performed. FINDINGS: EXAM MEASUREMENTS: Liver Length: 14.3 cm Gallbladder Wall: 0.3 cm CBD: 0.3 cm, color Doppler imaging was utilized to isolate the common bile duct for measurement. Spleen: 12.5 cm Right Kidney: 10.5x5.2x5.8 cm Left Kidney: 11.1x4.4x5.1 cm TENNIS DIRECTOR NOTES: limited exam due to overlying bowel Pancreas: Obscured by bowel gas Liver: Anechoic area seen within dome: 0.8x0.9x0.9cm previous CT (04/23/2024): 9mm Left lobe: slightly obscured by overlying bowel, difficult to visualize, bets images obtained Gallbladder: No stones seen slightly obscured, intercostal views used Evidence for sonographic Chou's sign: No CBD: slightly obscured by overlying bowel, wnl as best seen Spleen: wnl Right Kidney: wnl, No hydronephrosis, calculi or masses seen Left Kidney: wnl, No hydronephrosis, calculi or masses seen Upper IVC: obscured by bowel, prox: best visualized, wnl as best seen Abd Aorta: Prox: slightly obscured, mid/dist: wnl Visualized pancreas is unremarkable. Portions obscured by overlying bowel gas. No aneurysmal change o f the abdominal aorta. IVC is seen in the hepatic dome. Visualized liver is heterogeneous in appearan ce. No obvious suspicious mass identified. Common bile duct is not dilated. Gallbladder shows no shad owing mobile gallstones. Kidneys are symmetric and normal in size without hydronephrosis. Spleen shaun ures upper limits of normal in size on ultrasound, it is noted to measure mildly enlarged in size at 14.2 cm long axis coronal image [address] No suspicious focal intrasplenic masses or adjacent ascites noted. IMPRESSION: Mild splenomegaly is present seen better on recent CT. [facility], Workstation: [employer], 06/22/2024 8:15 AM
== END | disposition home or self-care (01) ==
LOC: RADUSWWP 07:23
PROVIDERS: ATTEND Internal Medicine Hematology & Oncology
DX: R16.1 Splenomegaly, not elsewhere classified (principal); D72.819 Decreased white blood cell count, unspecified; E78.5 Hyperlipidemia, unspecified; E61.8 Deficiency of other specified nutrient elements
CPT/HCPCS: 76700

== ENCOUNTER → 2024-07-06 | Outpatient (CLI) | payer BC ==
--- NOTE | 2024-07-08 13:57 | CTL ---
EXAMINATION TYPE: CT Low Dose Lung DATE OF EXAM: 07/06/2024 4:50 PM COMPARISON: 04/18/2023 SCREENING VISIT: Subsequent CT DIAGNOSTIC QUALITY: Satisfactory CLINICAL INDICATION: Male, 59 years old with history of Z12.2 ENCNTR SCREEN FOR MALIGNANT NEOPLASM Z8 7.891, F/u lung screening for nicotine dependence of 1ppd x25 years, quit smoking 12 years ago., Lung cancer screening, History of tobacco use. TECHNIQUE: Low dose computed tomography scan was performed through the chest at 1 mm thick sections a nd reconstructed images in the coronal plane at 1 mm thick sections. Contrast used: mL of , (none if empty) Oral contrast used: (none if empty) CT DLP: 84.7 mGycm, Automated exposure control for dose reduction was used. CT CTDI: 2.3 mGy, Automated exposure control for dose reduction was used. FINDINGS: LUNG NODULES: None. LUNGS: COPD: Severity: None Fibrosis: Severity: None Lymph nodes: None Other findings: None RIGHT PLEURAL SPACE: Effusion: None Calcification: None Thickening: None Pneumothorax: None LEFT PLEURAL SPACE: Effusion: None Calcification: None Thickening: None Pneumothorax: None HEART: Other: Ascending thoracic aorta at the level the main pulmonary artery measures 3.6 cm. The main pul monary artery at the bifurcation measures 2.4 cm. Heart Size: Normal Coronary calcification: No significant coronary artery calcifications. Pericardial effusion: None OTHER FINDINGS: Upper abdomen: Normal Bony thorax: Normal Supraclavicular region: Normal IMPRESSION: No suspicious changes suggest primary or metastatic neoplasm FOLLOW UP CT CHEST RECOMMENDATION: Follow-up low-dose CT chest one year CT LUNG RAD: Lung-Rad 1 Negative [facility], , 07/08/2024 1:55 PM
== END | disposition home or self-care (01) ==
LOC: RADCTMAIN 16:31
PROVIDERS: ATTEND Internal Medicine
DX: Z12.2 Encounter for screening for malignant neoplasm of respiratory organs (principal); Z87.891 Personal history of nicotine dependence
CPT/HCPCS: 71271